=== PATIENT | female | born 1950 | race Caucasian/White ===

== ENCOUNTER 2024-05-23 07:51 | Emergency (ER) | payer MEDICARE, SELFPAY ==
[2024-05-23 07:54] VITALS: BP 141/85
[2024-05-23 08:00] VITALS: BP 135/74
--- NOTE | 2024-05-23 08:10 | ED.GENMED ---
Addendum entered and electronically signed by KALIE Cadena 05/23/24 13:25:
[id number] patient was getting dressed for discharge she complained of more shortness of breath. On exam she now has slightly increased wheezing. Ambulatory pulse ox done and patient desats to 89-90%. Will give third treatment however if no
improvement may need to be admitted.
Original Note:
History of Present Illness
General
Chief Complaint: Breathing Problem
Source: patient
Exam Limitations: none
Time Seen by Provider: 05/23/24 08:05
Nursing documentation reviewed up to this point in time: agreed with
History of Present Illness
History of Present Illness:
Patient is a 73-year-old female who presents to the ER for evaluation. She has had a head cold for the past 4 days however recently started with wheezing last night and had increased wheezing today. She is a smoker but with the wheezing has some
shortness of breath. She denies any fevers. No prior diagnosis of COPD. has also had cold symptoms too. She has not tested for flu or COVID.
Review of Systems
Review of Systems
All Other Systems: ROS reviewed and negative except as documented in HPI and ROS
Constitutional: Reports no symptoms; Denies fever, fatigue or chills
EENT: Reports no symptoms
Respiratory: Reports cough, trouble breathing and other (wheezing )
Cardiac: Reports no symptoms
ABD/GI: Reports no symptoms
: Reports no symptoms
Musculoskeletal: Reports no symptoms
Skin: Reports no symptoms
Psychiatric: Reports no symptoms
Phy Exam
General Physical Exam
General Presentation: no apparent distress
General age: appears stated age
General Skin: warm and dry
General Habitus: normal
General Mental: alert
General Hydration: appears well hydrated
Cardiovascular Exam
Cardiovascular Exam: regular rate/rhythm, no murmur and normal peripheral pulses
Pulmonary Exam
Pulmonary Exam: no respiratory distress and other (exp wheezing )
Neurological Exam
Neurological Exam: alert and oriented x3
Musculoskeletal Exam
Musculoskeletal Exam: full ROM
Skin Exam
Skin Exam: normal color and warm/dry
Psychiatric Exam
Psychiatric Exam: normal mood/affect
Scores
Heart Failure Risk
Heart Failure Risk Score: Not Applicable
Course
Orders/Labs/Results
Orders:
Orders
05/23/24 07:57
Electrocardiogram (*1) Urgent
Reason for Study: Shortness of Breath
EKG- Treatment ONCE
05/23/24 08:17
IV Insert/Care/Rem.- Treatment PRN
05/23/24 08:20
Dexamethasone Sod Phosphate [Decadron] 10 mg IV NOW STA
05/23/24 08:31
COVID-19 Antigen Urgent
Source: Nasal Swab
Complete Blood Count/With Diff Urgent
Comprehensive Metabolic Panel Urgent
Influenza A+B Rapid Molecular Urgent
PACHECO Source: Nasal Swab
Specimen Description:
05/23/24 09:25
Albuterol Nebs [Ventolin Nebules] 2.5 mg INH R NOW STA
05/23/24 10:13
Chest [CR Chest - 2 Views ] Urgent
Comment:
Reason For Exam: cough /diff breathing/wheezing
05/23/24 11:02
Ipratropium/Albuterol Sulfate [Duoneb] 3 ml INH R NOW STA
Abnormal Lab Results
05/23/24
08:31
Absolute Lymphs (auto) 0.9 L 10^3/uL
(1.2-3.4)
Lymphocytes % 16.0 L %
(20.5-51.1)
Glucose 102 H mg/dl
(70-99)
05/23/24 08:31
05/23/24 08:31
Vital Signs
Initial and Last Documented VS:
Initial Vital Signs
Temp Pulse Resp BP Pulse Ox
98.0 F 100 16 141/85 95
05/23/24 07:54 05/23/24 07:54 05/23/24 07:54 05/23/24 07:54 05/23/24 07:54
Last Documented Vital Signs
Temp Pulse Resp BP Pulse Ox
98.0 F 88 20 141/72 98
05/23/24 07:54 05/23/24 10:00 05/23/24 10:00 05/23/24 10:00 05/23/24 09:45
MDM/Problems Addressed
Differential Diagnosis Includes:
Not limited to bronchitis, influenza, COVID, pneumonia
MDM/Problems Addressed:
Patient is a 73-year-old female who started with cold symptoms over the past several days and recently has had cough and wheezing. She is a smoker. Patient was found to be flu positive. On exam she is no acute distress she does have expiratory
wheezing but is not hypoxic. Patient was given a neb here she reports she does have an inhaler at home and also has an old nebulizer machine but does not have Nebules. Patient was given 1 dose of Decadron will DC with 4 days of steroids with
albuterol inhaler and will refill her Nebules. Will check chest x-ray to ensure pneumonia however patient is nontoxic stable for discharge home.
*Radiology
Radiology exam reviewed: radiology read reviewed
*Pulse Oximetry
Patient hypoxic: no
*Critical Care Note
Total Time (30-74mins, 75-104mins- exclusive of procedures): Not Applicable
ED Attending Note
-
Portions of this chart may have been created with voice recognition software.� Occasional wrong word or��sound alike� substitutions may have occurred due to the inherent limitations of voice recognition software.
Discharge Plan
Departure
Patient Disposition: Home (Routine Discharge)
Date of Disposition: 05/23/24
Time of Disposition: 11:44
Patient with high blood pressure during this ER visit?: Yes
Condition: Fair
Covid-19: Not Applicable
Discharge Problem:
Influenza A
Instructions: Flu in adults - Discharge instructions
Prescriptions:
New
albuterol sulfate 90 mcg/actuation HFA aerosol inhaler
2 inh inhalation QID PRN (Reason: shortness of breath or wheezing) Qty: 6.7 0RF
albuterol sulfate 2.5 mg/0.5 mL solution for nebulization
2.5 mg inhalation Q6H PRN (Reason: shortness of breath or wheezing) Qty: 30 0RF
prednisone 20 mg tablet
40 mg PO DAILY Qty: 8 0RF
Referrals:
Kenneth Viveros, [Family Provider] -
Activity Restrictions/Additional Instructions:
As discussed you are positive for flu. You were treated for wheezing here in the ER with albuterol treatments and steroids. A prescription for albuterol Nebules was sent to the pharmacy to use with your nebulizer in addition a prescription for
inhaler was sent to pharmacy. Take as directed. Finally a prescription for steroids was sent to the pharmacy for the next 4 days. Start tomorrow.
Stop smoking!! Be sure to get plenty rest stable hydrated.
Follow-up with your family doctor next of days for reevaluation return if any worsening of symptoms
Interventions
Interventions:
*Risk Screen - Suicide Last Done: 05/23/24 07:56
*Neglect/Abuse Screening Last Done: 05/23/24 07:56
Discharge Date and Time
Print Language: GREENLANDIC
[2024-05-23] MEDS: DECADRON 10 MG IV (08:32)
[2024-05-23 09:11] LABS: % Basophils 0.8 % (0-2); % Eosinophils 0.6 % (0-6); % Immature Granulocytes 0.2 % (0-0.5); % Monocytes 8.5 % (1.7-9.3); % Neutrophils 73.9 % (42.2-75.2); Absolute Lymphocytes 0.9 10^3/uL (1.2-3.4); Absolute Monocytes 0.5 10^3/uL (0.1-0.6); Absolute Neutrophils 3.9 10^3/uL (1.4-6.5); Hematocrit 41.5 % (37.0-47.0); Hemoglobin 13.9 g/dL (12.0-16.0); Mean Corp Hgb Conc. 33.5 g/dL (33.0-37.0); Mean Corpuscular Hgb 29.7 pg (27.0-31.0); Mean Corpuscular Volume 88.7 fL (81.0-99.0); Mean Platelet Volume 9.7 fL (7.4-10.4); Nucleated Red Blood Cells % 0 %; Platelet Count 308 10^3/uL (130-400); Red Blood Cell Count 4.68 10^6/uL (4.20-5.40); Red Cell Dist. Width 13.9 % (11.5-14.5); White Blood Cell Count 5.3 10^3/uL (4.8-10.8)
[2024-05-23 09:14] LABS: COVID-19 Antigen Negative (Negative)
[2024-05-23 09:22] LABS: ALT (SGPT) 23 U/L (0-35); AST (SGOT) 30 U/L (14-36); Albumin 4.5 g/dl (3.5-5.0); Alkaline Phosphatase 69 U/L (38-126); Blood Urea Nitrogen 14 mg/dl (7-17); Calcium 9.6 mg/dl (8.4-10.2); Carbon Dioxide 30 mmol/L (22-30); Chloride 104 mmol/L (98-107); Glucose 102 mg/dl (70-99); Potassium 4.5 mmol/L (3.5-5.1); Sodium 142 mmol/L (135-145); Total Bilirubin 0.4 mg/dl (0.2-1.3); Total Protein 7.1 g/dl (6.3-8.2); eGFR > 60.00
[2024-05-23] MEDS: VENTOLIN NEBULES 2.5 MG INH ×2 (09:42→13:30)
[2024-05-23 10:00] VITALS: BP 141/72
[2024-05-23] MEDS: DUONEB 3 ML INH (11:11)
[2024-05-23 12:00] VITALS: BP 128/91
[2024-05-23 14:00] VITALS: BP 132/64
== END 2024-05-23 14:40 | disposition home or self-care (01) ==
LOC: EMR 07:51
PROVIDERS: Nurse Practitioner; EMERGENCY PHYSICIAN Emergency Medicine; FAMILY PHYSICIAN Family Medicine
DX: J10.1 Influenza due to other identified influenza virus with other respiratory manifestations (principal); F17.200 Nicotine dependence, unspecified, uncomplicated
CPT/HCPCS: 94640; 96374; 99285; 71046; 80053; 85025; 87502; 87811; 93005